=== PATIENT | female | born 1960 | race Native Hawaiian/Other Pacific Islander ===

== ENCOUNTER 2017-04-05 10:58 | Outpatient (CLI) | payer OTHER | END 2017-04-05 17:51 | disposition home or self-care (01) | LOC: MAMMO 10:58 | DX: Z12.31 Encounter for screening mammogram for malignant neoplasm of breast (principal) | CPT/HCPCS: G0202-TC ==

== ENCOUNTER 2018-11-12 13:58 | Outpatient (CLI) | payer OTHER | END 2018-11-12 19:21 | disposition home or self-care (01) | LOC: MAMMO 13:58 | DX: Z12.31 Encounter for screening mammogram for malignant neoplasm of breast (principal) ==

== ENCOUNTER 2018-11-25 08:56 | Outpatient (CLI) | payer OTHER | END 2018-11-25 19:57 | disposition home or self-care (01) | LOC: MAMMO 08:56 | DX: M81.8 Other osteoporosis without current pathological fracture (principal); R92.8 Other abnormal and inconclusive findings on diagnostic imaging of breast ==

== ENCOUNTER 2019-08-25 13:23 | Outpatient (CLI) | payer OTHER ==
[2019-08-25 14:25] LABS: PLATELET COUNT 291 K/uL (152-353)
[2019-08-25 14:37] LABS: POTASSIUM 4.5 mmol/L (3.6-5.2)
== END 2019-08-25 19:27 | disposition home or self-care (01) ==
LOC: LAB 13:23
PROVIDERS: Family Medicine
DX: E03.8 Other specified hypothyroidism (principal); E78.49 Other hyperlipidemia
CPT/HCPCS: 80053; 80061; 84439; 84443; 84481; 85027

== ENCOUNTER 2022-11-23 08:38 | Outpatient (CLI) | payer OTHER | END 2022-11-23 22:25 | disposition home or self-care (01) | LOC: MAMMO 08:38 | PROVIDERS: ATTEND Internal Medicine | DX: Z12.31 Encounter for screening mammogram for malignant neoplasm of breast (principal) ==

== ENCOUNTER 2022-12-12 11:49 | Outpatient (CLI) | payer OTHER | END 2022-12-12 19:28 | disposition home or self-care (01) | LOC: MAMMO 11:49 | PROVIDERS: ATTEND Internal Medicine | DX: N64.59 Other signs and symptoms in breast (principal) ==

== ENCOUNTER 2023-01-31 09:11 | Outpatient (CLI) | payer OTHER | END 2023-01-31 19:04 | disposition home or self-care (01) | LOC: CT 09:11 | PROVIDERS: ATTEND Internal Medicine | DX: R51.9 Headache, unspecified (principal); R42 Dizziness and giddiness ==